=== PATIENT | male | born 1950 | race Caucasian/White ===

== ENCOUNTER 2016-10-18 05:17 | Day surgery (SDC) | payer OTHER ==
[~2016-10-18] VITALS: Ht 170.2 cm; Wt 136.0 kg
[~2016-10-18 05:17] MED LIST: BENICAR40 MG PO; CRESTOR20 MG PO; DIGITEK125 MC2 PO; FLONASE ALLERG9.9 ML BOTH NARES; GLUCOPHAGE1000 MG PO; HYGROTON25 MG PO; HYTRIN2 MG PO; LO-DOSE ASPIRIN81 M2 PO; METAXALL800 MG PO; PRADAXA150 MG PO; TOPROL XL50 MG PO; ULTRAM50 MG PO
[2016-10-18 06:12] VITALS: BP 134/77
[2016-10-18 06:31] LABS: POINT-OF-CARE METER ID UU14174212
[2016-10-18] MEDS ORDERED: PERCOCET 5/31 TABLET PO (08:45)
[2016-10-18 08:59] LABS: POINT-OF-CARE METER ID UU13113675
[2016-10-18 10:21] VITALS: BP 166/97
[2016-10-18 11:53] VITALS: BP 144/97
== END 2016-10-18 11:59 | disposition home or self-care (01) ==
LOC: SDC 05:17
PROVIDERS: Surgery
PROC: 06BY0ZC Excision of Hemorrhoidal Plexus, Open Approach (ICD-10-PCS; principal; 2016-10-18)
DX: K64.8 Other hemorrhoids (principal); I48.91 Unspecified atrial fibrillation; E11.9 Type 2 diabetes mellitus without complications; E78.5 Hyperlipidemia, unspecified; G47.30 Sleep apnea, unspecified; E66.9 Obesity, unspecified; Z68.42 Body mass index [BMI] 45.0-49.9, adult; Z79.01 Long term (current) use of anticoagulants; Z79.82 Long term (current) use of aspirin; Z79.84 Long term (current) use of oral hypoglycemic drugs; Z79.899 Other long term (current) drug therapy
CPT/HCPCS: 82948; 88304; J0131; J0690; J1170; J1885; J2250; J2405; J3010